=== PATIENT | male | born 2000 | race Caucasian/White ===

== ENCOUNTER 2021-07-10 14:42 | Emergency (ER) | payer OTHER ==
[~2021-07-10] VITALS: Ht 175.3 cm; Wt 86.2 kg
[~2021-07-10 14:42] MED LIST: ACETAMINOPHEN-1 EAC1 PO; DOXYCYCLINE 10100 MG PO; FLOVENT; NOHOMEMEDICATIONS
[2021-07-10 16:14] LABS: ABSOLUTE LYMPHOCYTES 1.4 thou/uL (0.8-5.3); ABSOLUTE NEUTROPHILS 4.8 thou/uL (1.6-8.1); HEMATOCRIT 49.6 % (42.0-52.0); HEMOGLOBIN 17.4 gm/dL (14.0-18.0); RDW-CV 12.8 % (10.5-14.5); WBC 7.4 thou/uL (4.0-11.0)
[2021-07-10 16:15] LABS: ABSOLUTE MONOCYTES 1.1 thou/uL (0.0-1.2); BASOPHILS 0.4 %; EOSINOPHILS 0.4 %; LYMPHOCYTES 19.1 %; MCH 28.7 pg (26.0-34.0); MCV 81.8 fL (80.0-100.0); MONOCYTES 15.4 %; MPV 7.5 fl. (7.2-11.1); NUCLEATED RBCS 0 /100WBC; PLATELET COUNT* 340 thou/uL (150-400); POLYS 64.7 %; RBC 6.06 mil/uL (4.50-6.00)
[2021-07-10 16:23] LABS: CREATININE 1.3 mg/dL (0.6-1.3)
[2021-07-10 16:28] LABS: TOTAL BILIRUBIN 1.5 mg/dL (<0.1-1.0); TOTAL PROTEIN 8.5 g/dL (6.4-8.2)
[2021-07-10 16:29] LABS: POTASSIUM 2.8 mmol/L (3.5-5.1)
[2021-07-10 19:58] LABS: CALCIUM 8.2 mg/dL (8.5-10.1); CREATININE 1.2 mg/dL (0.6-1.3); POTASSIUM 3.1 mmol/L (3.5-5.1)
[2021-07-10 23:17] VITALS: BP 119/60
--- NOTE | 2021-07-11 09:42 | EKG ---
[place] [address] ELECTROCARDIOGRAM REPORT Name: PIPPA WRIGHT Room: [facility]#: [id number] Admission: 07/10/21 Attend Phys: Discharge: 07/10/21 Date of : 89 Date of Service: 07/10/21 1615 Report #: [id number] THIS REPORT FOR: //name// [facility] ED Test Date: 2021-07-10 Test Time: 16:15:36 Pat Name: PIPPA KASI BEARDEN Department: Room: Gender: Roll Inspector: : 2000 Requested By: Norman Myers Order Number: [id number] MD: Romeo Licea Measurements Intervals [place] Rate: 107 P: 85 MA: 142 QRS: 75 QRSD: 102 T: 62 QT: 390 QTc: 521 Interpretive Statements Sinus tachycardia Prolonged QT interval No previous ECG available for comparison Electronically Signed On 07-11-2021 9:41:57 RADIOLOGY SERVICES MANAGER by Romeo Licea [email or web address] <ELECTRONICALLY SIGNED> By: Romeo Licea MD, [facility] 07/11/21 0941 1615 14 Romeo Licea MD, [facility] /EPI
--- NOTE | 2021-07-11 09:42 | EKG ---
[place] [address] ELECTROCARDIOGRAM REPORT Name: PIPPA WRIGHT Room: [facility]#: [id number] Admission: 07/10/21 Attend Phys: Discharge: 07/10/21 Date of : [birth year] Date of Service: 07/10/211917 Report #: [id number] THIS REPORT FOR: //name// [facility] ED Test Date: 2021-07-10 Test Time: 19:18:21 Pat Name: PIPPA KASI BEARDEN Department: Room: Gender: Bilingual Customer Service Specialist: : 2000 Requested By: Norman Myers Order Number: [id number] MD: Romeo Licea Measurements Intervals [place] Rate: 79 P: 65 ID: [id number] QRS: 49 QRSD: 105 T: 47 QT: 384 QTc: 441 Interpretive Statements Sinus rhythm Compared to ECG 07/10/2021 16:15:36 Sinus tachycardia no longer present Prolonged QT interval no longer present Electronically Signed On 07-11-2021 9:42:15 SECURITY FLEX OFFICER by Romeo Licea [email or web address] <ELECTRONICALLY SIGNED> By: Romeo Licea MD, FAC 07/11/21 0942 17 17 Romeo Licea MD, [facility] /EPI
== END 2021-07-10 23:18 | disposition home or self-care (01) ==
LOC: M.ERS 14:42
PROVIDERS: Physician Assistant Medical
DX: E87.8 Other disorders of electrolyte and fluid balance, not elsewhere classified (principal); R11.2 Nausea with vomiting, unspecified; R20.0 Anesthesia of skin; R20.2 Paresthesia of skin; J45.909 Unspecified asthma, uncomplicated; Z90.49 Acquired absence of other specified parts of digestive tract